=== PATIENT | male | born 1995 | race Hispanic/Latino ===

== ENCOUNTER 2023-04-03 11:48 | Emergency (ER) | payer BC ==
[~2023-04-03] VITALS: Ht 182.9 cm; Wt 122.5 kg
[2023-04-03] MEDS ORDERED: KETOROLAC 15MG/ML VIAL (15MG/ML) IM ONE (12:00)
[2023-04-03 12:35] LABS: BASOPHILS % (AUTO) 0.8 % (0.0-5.0); EOSINOPHILS % (AUTO) 2.2 % (0.0-8.0); HEMATOCRIT 47.7 % (42-54); LYMPHOCYTES % (AUTO) 24.2 % (21.0-51.0); MEAN CORPUSCULAR HEMOGLOBIN 29.1 pg (27.0-33.0); MEAN CORPUSCULAR VOLUME 85.6 fL (79-99); MONOCYTES % (AUTO) 10.1 % (3.0-13.0); NEUTROPHILS % (AUTO) 61.9 % (40.0-77.0); PLATELET COUNT (AUTO) 298 K/uL (130-400); RED BLOOD CELL COUNT(AUTO) 5.57 MIL/uL (4.50-6.20); RED CELL DISTRIBUTION WIDTH 12.7 % (11.0-15.5); WHITE BLOOD COUNT (AUTO) 10.1 K/uL (4.8-10.8)
[2023-04-03 12:44] LABS: CREATININE 0.8 mg/dL (0.5-1.5); POTASSIUM 3.6 mmol/L (3.5-5.1)
[2023-04-03 12:49] LABS: ALBUMIN 4.1 g/dL (3.5-5.0); TOTAL PROTEIN, SERUM 7.5 g/dL (6.0-8.3)
[2023-04-03 14:11] VITALS: BP 128/92
[2023-04-03 14:25] LABS: APPEARANCE,URINE CLEAR (CLEAR); BILIRUBIN,URINE NEGATIVE (NEGATIVE); COLOR,URINE YELLOW (YELLOW); GLUCOSE, URINE (UA) NEGATIVE (NEGATIVE); KETONES,URINE NEGATIVE (NEGATIVE); LEUKOCYTE ESTERASE ,URINE NEGATIVE Leu/uL (NEGATIVE); NITRATE,URINE NEGATIVE (NEGATIVE); OCCULT BLOOD,URINE NEGATIVE (NEGATIVE); PROTEIN,URINE 10 mg/dL (NEGATIVE); UROBILINOGEN,URINE 0.2 mg/dL (0.2-1.0)
[2023-04-03 14:36] LABS: MUCUS,URINE RARE LPF (None Seen); RBC,URINE 0-1 /HPF (0-1); WBC,URINE 0-1 /HPF (0-1)
[2023-04-03] MEDS ORDERED: FAMO20TA8 PO (14:36)
== END 2023-04-03 14:48 | disposition home or self-care (01) ==
LOC: EDH 11:48
DX: K29.70 Gastritis, unspecified, without bleeding (principal); J45.909 Unspecified asthma, uncomplicated; Z98.890 Other specified postprocedural states
CPT/HCPCS: 99284; 76705; 80053; 83690; 85025; 81001; 36415; J1885

== ENCOUNTER 2023-05-11 18:03 | Emergency (ER) | payer BC ==
[~2023-05-11] VITALS: Ht 182.9 cm; Wt 122.5 kg
[~2023-05-11 18:03] MED LIST: FAMO20TA8 PO
[2023-05-11 18:41] LABS: EOSINOPHILS # (AUTO) 0.31 K/uL (0.00-0.70); EOSINOPHILS % (AUTO) 3.1 % (0.0-8.0); HEMATOCRIT 45.4 % (42-54); IMMATURE GRANULOCYTE ABSOLUTE 0.05 K/uL (0-1); LYMPHOCYTES # (AUTO) 3.3 K/uL (1.0-4.8); LYMPHOCYTES % (AUTO) 32.6 % (21.0-51.0); MEAN CORPUSCULAR HEMOGLOBIN 29.9 pg (27.0-33.0); MEAN CORPUSCULAR HGB CONC 34.4 g/dL (32.0-36.0); MONOCYTES % (AUTO) 9.8 % (3.0-13.0); NEUTROPHILS # (AUTO) 5.3 K/uL (1.8-7.7); PLATELET COUNT (AUTO) 274 K/uL (130-400); RED BLOOD CELL COUNT(AUTO) 5.22 MIL/uL (4.50-6.20); RED CELL DISTRIBUTION WIDTH 12.4 % (11.0-15.5); WHITE BLOOD COUNT (AUTO) 10.1 K/uL (4.8-10.8)
[2023-05-11 19:00] LABS: CREATININE 0.9 mg/dL (0.5-1.5); POTASSIUM 3.6 mmol/L (3.5-5.1)
[2023-05-11 19:05] LABS: ALBUMIN 4.2 g/dL (3.5-5.0); BILIRUBIN,TOTAL 0.8 mg/dL (0.2-1.0); TOTAL PROTEIN, SERUM 7.6 g/dL (6.0-8.3)
[2023-05-11] MEDS ORDERED: HYDR-3421 PO (21:29)
[2023-05-11 22:10] VITALS: BP 152/90; PULSE 88; RESP 18; O2SAT 99
== END 2023-05-11 22:02 | disposition home or self-care (01) ==
LOC: EDH 18:03
DX: R07.89 Other chest pain (principal); F41.9 Anxiety disorder, unspecified; J45.909 Unspecified asthma, uncomplicated; Z79.899 Other long term (current) drug therapy; Z98.890 Other specified postprocedural states
CPT/HCPCS: 36415; 71045; 80053; 84484; 85025; 93005